=== PATIENT | female | born 1970 ===

== ENCOUNTER 2017-08-31 15:28 | Emergency (ER) | payer OTHER ==
[~2017-08-31] VITALS: Ht 160 cm; Wt 93.0 kg
[~2017-08-31 15:28] MED LIST: INTESTINEX680 MG PO; PRILOSEC10 M2 PO; SYNTHROID75 MCG PO; [UNRECOGNIZED DRUG - OTHER] PO
[2017-08-31] MEDS ORDERED: METOPROLOL SUCC25 MG (15:44)
[2017-08-31] MEDS ORDERED: CYCLOBENZAPRINE10 MG PO (20:58)
[2017-08-31] MEDS ORDERED: CELEBREX100 MG PO (20:58)
[2017-08-31] MEDS ORDERED: KEFLEX500 MG PO (20:58)
== END 2017-08-31 21:04 | disposition home or self-care (01) ==
LOC: ER 15:28
DX: M54.89 Other dorsalgia (principal); N39.0 Urinary tract infection, site not specified

== ENCOUNTER 2022-03-21 10:35 | Emergency (ER) | payer OTHER ==
[~2022-03-21] VITALS: Ht 157.5 cm; Wt 105.2 kg
[~2022-03-21 10:35] MED LIST changes: +CELEBREX100 MG PO; +CYCLOBENZAPRINE10 MG PO; +KEFLEX500 MG PO; +METOPROLOL SUCC25 MG
[2022-03-21] MEDS ORDERED: COZAAR25 MG PO (10:50)
[2022-03-21] MEDS ORDERED: SIMVASTATIN20 MG PO (10:51)
[2022-03-21] MEDS ORDERED: SYNTHROID100 MCG PO (10:51)
== END 2022-03-21 12:13 | disposition home or self-care (01) ==
LOC: ER 10:35
DX: N39.0 Urinary tract infection, site not specified (principal); B96.89 Other specified bacterial agents as the cause of diseases classified elsewhere; Z88.8 Allergy status to other drugs, medicaments and biological substances; Z91.040 Latex allergy status